=== PATIENT | male | born 1990 | race Caucasian/White ===

== ENCOUNTER 2024-07-02 19:52 | Outpatient (OUT) | payer OTHER, SELFPAY | END 2024-07-02 19:53 | disposition home or self-care (01) | LOC: SLEEP 19:52 | DX: G47.33 Obstructive sleep apnea (adult) (pediatric) (principal) | CPT/HCPCS: 95810 ==

== ENCOUNTER 2024-07-23 19:56 | Outpatient (OUT) | payer OTHER, SELFPAY | END 2024-07-23 19:57 | disposition home or self-care (01) | LOC: SLEEP 19:57 | DX: G47.33 Obstructive sleep apnea (adult) (pediatric) (principal) | CPT/HCPCS: 95811 ==